=== PATIENT | female | born 1970 | race Caucasian/White ===

== ENCOUNTER 2018-12-29 01:09 | Outpatient (CLI) | payer BC, SELFPAY ==
[2018-12-29 09:19] LABS: ALT 17 U/L (12-78); AST 8 U/L (15-37); Albumin 3.8 g/dL (3.4-5.0); Alkaline Phosphatase 82 U/L (46-116); Anion Gap 13.3 mmol/L (3-11); BUN 13 mg/dL (7-18); Bilirubin, Total 0.5 mg/dL (0.2-1.0); CO2 21.7 mmol/L (21.0-32.0); CREATININE 0.72 mg/dL (0.55-1.02); Calcium 9.2 mg/dL (8.5-10.1); Calculated LDL 162 mg/dL; Chloride 106 mmol/L (98-107); Cholesterol 236 mg/dL (50-200); Glucose 91 mg/dL (70-100); HDL Cholesterol 45 mg/dL (40-60); Potassium 3.9 mmol/L (3.5-5.1); Sodium 141 mmol/L (136-145); Triglyceride 146 mg/dL (30-150)
== END 2018-12-29 01:29 ==
PROVIDERS: PCP Family Medicine
DX: F41.9 Anxiety disorder, unspecified (principal); R11.2 Nausea with vomiting, unspecified; Z00.00 Encounter for general adult medical examination without abnormal findings; Z13.220 Encounter for screening for lipoid disorders
CPT/HCPCS: 36415; 80053; 80061; 83721

== ENCOUNTER 2021-02-14 15:55 | Outpatient (REF) | payer BC, SELFPAY ==
--- NOTE | 2021-02-14 13:00 | PAPFT_PTH ---
PATIENT: Reyna Cat LOC: [facility] U#:[id number] AGE/SX: 50/F ROOM: RE02/14/[address]: CHON Oates : 1970 BED: DIS: 02/14/2021 SPEC #: [id number] RECD: 02/14/21 18:22 STATUS: FRANCOIS REQ #: [id number] TESS: 02/14/21 13:[address]: Natali Lara DEPT: [facility]LY [facility], [facility] Cytology RECD BY: Laina Rios ENTERED: 02/14/21 18:23 SP TYPE: PAPFT OT DR: Lela Del Rio MD Tissues: 1 - CX/ENDOCX FOR PAP SMEARS Procedures: PAP THIN PREP/UVM Screening HPV DNA PROBE Comments: [id number]
== END 2021-02-14 15:56 | disposition home or self-care (01) ==
LOC: LBN 15:55
PROVIDERS: PCP Family Medicine; Referring Provider Nurse Practitioner Family; Visit Provider Nurse Practitioner Family
DX: Z12.4 Encounter for screening for malignant neoplasm of cervix (principal); Z11.51 Encounter for screening for human papillomavirus (HPV)
CPT/HCPCS: 88142; 87624

== ENCOUNTER 2021-03-06 04:00 | Outpatient (CLI) | payer BC, SELFPAY ==
[2021-03-06 14:34] LABS: TSH (W/Ref FT4) 1.53 uIU/mL (0.36-3.74)
== END 2021-03-06 04:01 | disposition home or self-care (01) ==
LOC: LBO 04:00
PROVIDERS: PCP Family Medicine; Visit Provider Nurse Practitioner Family
DX: N92.0 Excessive and frequent menstruation with regular cycle (principal)
CPT/HCPCS: 36415; 84443

== ENCOUNTER 2021-03-07 13:54 | Outpatient (REF) | payer BC, SELFPAY ==
--- NOTE | 2021-03-07 13:15 | ENDOMET_PTH ---
PATIENT: Reyna Cat LOC: [facility] U#:[id number] AGE/SX: 51/F ROOM: RE03/07/[address]: Payton Olivo : 1970 BED: DIS: 03/07/2021 SPEC #: [id number] RECD: 03/07/21 17:33 STATUS: FRANCOIS REQ #: [id number] TESS: 03/07/21 13:[address]: Payton Olivo DEPT: Surgical Specimen RECD BY: Laina Rios ENTERED: 03/07/21 17:34 SP TYPE: Endomet OTHR DR: Jeramie Proctor Tissues: 1 - ENDOMETRIUM BX/CURRETTE Procedures: GROSS AND MICRO LEVEL 4 Comments: [id number]
== END 2021-03-07 13:55 | disposition home or self-care (01) ==
LOC: LBN 13:54
PROVIDERS: PCP Family Medicine; Visit Provider Obstetrics & Gynecology Gynecology
DX: N93.9 Abnormal uterine and vaginal bleeding, unspecified (principal)
CPT/HCPCS: 88305

== ENCOUNTER 2021-03-20 02:55 | Outpatient (CLI) | payer BC, SELFPAY ==
[2021-03-20 09:18] LABS: HCT 34.1 % (36.0-46.0); HGB 10.6 g/dL (11.2-15.7); MCH 26.7 pg (27.0-33.0); MCHC 31.1 % (32.0-36.0); MCV 85.9 fL (80-95); MPV 10.2 fL (8.0-11.0); Platelet Count 364 10^3/uL (130-400); RBC 3.97 10^6/uL (3.93-5.22); RDW 15.6 % (11.7-14.6); RDW-SD 48.9 fL; WBC 6.18 10^3/uL (4.4-10.8)
[2021-03-20 10:18] LABS: Chloride 106 mmol/L (98-107); HCG Qual (Serum) Negative; Potassium 4.4 mmol/L (3.5-5.1); Sodium 142 mmol/L (136-145)
[2021-03-20 11:33] LABS: Source Nasal/Nares
[2021-03-20 16:28] LABS: COVID-19 PCR Negative (Negative)
== END 2021-03-20 02:56 | disposition home or self-care (01) ==
LOC: LBO 02:55
PROVIDERS: PCP Family Medicine; Visit Provider Obstetrics & Gynecology Gynecology
DX: D25.9 Leiomyoma of uterus, unspecified (principal); N93.8 Other specified abnormal uterine and vaginal bleeding; Z20.822 Contact with and (suspected) exposure to COVID-19; Z01.818 Encounter for other preprocedural examination; Z01.812 Encounter for preprocedural laboratory examination
CPT/HCPCS: 36415; 80051; 85027; 87635; 84703

== ENCOUNTER 2021-03-22 10:29 | Inpatient (IN) | payer BC, SELFPAY ==
[2021-03-22] VITALS (21 sets, daily range): BP systolic 76–131; BP diastolic 27–74; PULSE 62–78; RESP 12–18; TEMP 36.1–37.3; O2SAT 95–100; BMI 29.0
[2021-03-22] MEDS: Lactated Ringers 1,000 ML 125 ML IV ×3 (06:31→14:17)
--- NOTE | 2021-03-22 06:58 | W.ANESPRE ---
General Info Date of Service Date Performed: 03/22/21 Height: 5 ft 9 in Weight: 89.2 kg Body Mass Index (BMI): 29.0 Surgical Procedure: Operation Date: 03/22/21 07:40 Proposed Procedures Side Surgeon p Hysterectomy Vaginal Laparoscopic Assist,sarath salpingectomy, bladder cysto Payton Olivo MD Meds Allergies and Home Medications Allergies Allergy/AdvReac Type Severity Reaction Status Date / Time codeine AdvReac Intermediate NAUSEA Verified 03/22/21 05:51 Home Medication Medication Instructions Recorded melatonin 5 mg PO HS 03/26/16 triamcinolone acetonide 0.1 % 1 applic TP BID #15 gm 08/20/19 topical ointment trazodone 50 mg tablet 25 - 50 mg PO QHS PRN #90 tab 10/11/19 omeprazole 20 mg capsule,delayed 20 mg PO DAILY #90 tab-cap 05/02/20 release sertraline 100 mg tablet 100 mg PO DAILY #90 tab-cap 08/27/20 Current Visit Medications: Current Medications Generic Name Dose Route Start Last Admin Trade Name Freq PRN Reason Stop Dose Admin Ringer's Solution 1,000 mls @ 125 mls/hr 03/22/21 06:00 03/22/21 06:31 IV 04/20/21 23:59 125 mls/hr INFUSION REYNALDO Administration Cefazolin Sodium/Dextrose 2 gm in 50 mls @ 100 mls/hr 03/22/21 06:00 Ancef Duplex IVPB 04/20/21 23:59 PREOP REYNALDO IV Miscellaneous Supplies 1 each 03/22/21 06:00 Iv Access IV 04/20/21 23:59 DIRECTED REYNALDO Sodium Chloride 0 ml 03/22/21 06:00 Normal Saline Flush 10 Ml Syr IV 04/20/21 23:59 PRN PRN Sodium Chloride 0 ml 03/22/21 06:00 Normal Saline 10 Ml Vial IJ 04/20/21 23:59 DIRECTED PRN Sterile Water 0 ml 03/22/21 06:00 Water,Injection,Sterile 10 Ml Vial IJ 04/20/21 23:59 DIRECTED PRN PFSH Active Problems Active Problems: Problem Status Onset Code Fibroid D21.9 Menorrhagia N92.0 Arm pain, left M79.602 Anxiety as acute reaction to gross stress F41.1, F43.0 Malignant neoplasm of female breast 05/02/01 C50.919 Migraine 04/29/13 G43.909 Medical History Medical History Anxiety as acute reaction to gross stress Arm pain, left Fibroid Surgical History Surgical History Breast, Lumpectomy (~2001) Right Breast Ca Dilation and curettage (~2005) Menorrhagia Tobacco Smoking/Tobacco Use Status: Never Alcohol Alcohol Intake: never Substance Use Substance use: Never Substance use type: does not use Vital Signs and Lab Results Vital Signs Most Recent Vital Signs in EMR: Most Recent Vital Signs Temp Pulse Resp BP Pulse Ox 36.4 C L 73 18 131/69 97 03/22/21 06:00 03/22/21 06:00 03/22/21 06:00 03/22/21 06:00 03/22/21 06:00 Lab Results Blood Type / Crossmatch: Patient ABO/Rh O Positive 03/22/21 06:15 03/22/21 Antibody Screen NEGATIVE 03/22/21 06:15 03/22/21 Complete Blood Count: White Blood Count 6.18 10^3/uL (4.4-10.8) 03/20/21 08:48 03/20/21 Red Blood Count 3.97 10^6/uL (3.93-5.22) 03/20/21 08:48 03/20/21 Hemoglobin 10.6 g/dL (11.2-15.7) L 03/20/21 08:48 03/20/21 Hematocrit 34.1 % (36.0-46.0) L 03/20/21 08:48 03/20/21 Platelet Count 364 10^3/uL (130-400) 03/20/21 08:48 03/20/21 Complete Metabolic Panel: Sodium Level 142 mmol/L (136-145) 03/20/21 08:48 03/20/21 Potassium Level 4.4 mmol/L (3.5-5.1) 03/20/21 08:48 03/20/21 Chloride Level 106 mmol/L (98-107) 03/20/21 08:48 03/20/21 Carbon Dioxide Level 25.0 mmol/L (21.0-32.0) 03/20/21 08:48 03/20/21 Liver Function Panel: No Data to Display Coagulation Panel: No Data to Display Cardiac Panel: No Data to Display Arterial Blood Gas: No Data to Display Venous Blood Gas: No Data to Display Pancreas Panel: No Data to Display Thyroid Panel: Thyroid Stimulating Hormone (TSH) 1.53 uIU/mL (0.36-3.74) 03/06/21 12:40 03/06/21 Infectious Disease: Coronavirus (COVID-19)(PCR) Negative (Negative) 03/20/21 09:05 03/20/21 Coronavirus 2019 Source Nasal/Nares 03/20/21 09:05 03/20/21 Blood Cultures: No Data to Display Toxicology Panel: No Data to Display Panel: Serum HCG, Qualitative Negative 03/20/21 08:48 03/20/21 Anesthesia Assessment and Plan Anesthesia History Personal History: No History of Anesthesia Complications Family History: No Family History of Anesthesia Complications Exercise Tolerance Exercise Tolerance: Metabolic Equivalents>4 Pertinent Negatives Pertinent Negatives: No Symptoms of GERD, No Major Cardiovascular Symptoms or Complaints, No Major Pulmonary Symptoms or Complaints and No History of CVA/TIA Cardiac & Pulmonary Exam Cardiac Exam: Normal S1/S2 Heart Sounds Pulmonary Exam: Clear Bilateral Breath Sounds Airway Exam Known Difficult Airway: No Mallampati Class: 3 Mouth Opening: Narrow (< 3cm) Thyromental Distance: Less than 3 cm Neck Range of Motion: Full ROM Neck Circumference: Normal Teeth Condition: Normal Dentition ASA Classification ASA Score: ASA 2 Emergency Case?: No NPO Status NPO Status: NPO Clears >2 hours, Solids >8 hours Status Status: Negative HCG Anesthesia Plan Resuscitation Status: Full Code Anesthesia Technique: General Anesthesia Airway Planned: Endotracheal Tube Pain Management: Intrathecal Analgesia Monitors Used: Standard Monitors
[2021-03-22] MEDS: ceFAZolin 2 GM/50 ML BAG IVPB (07:53)
[2021-03-22] MEDS: Bupivacaine 0.25% Pres-Free 30 ML VIAL (09:28)
--- NOTE | 2021-03-22 09:42 | UTER_PTH ---
PATIENT: Reyna Cat LOC: [facility] U#:[id number] AGE/SX: 51/F ROOM: OBS.306 RE03/22/[address]: Payton Olivo : 1970 BED: A DIS: 03/23/2021 SPEC #: [id number] RECD: 03/22/21 12:52 STATUS: FRANCOIS REQ #: [id number] TESS: 03/22/21 09:[address]: Payton Olivo DEPT: Surgical Specimen RECD BY: Laina Rios ENTERED: 03/22/21 12:53 SP TYPE: UTER OTHR DR: Jeramie Proctor Tissues: 1 - UTERUS W OR W/O OVARIES(NOT TUMOR/PROLAPSE) Procedures: IMMUNOPEROXIDASE STAIN GROSS AND MICRO LEVEL 5 Comments: [id number]
[2021-03-22] MEDS: Cellulose,Oxidized 2X3 PKT 1 EACH MC (10:57)
[2021-03-22] MEDS: Bupivacaine LIPOSOME/PF 133 MG/10 ML VIAL IJ (10:57)
[2021-03-22] MEDS: ePHEDrine 50 MG/ML VIAL IVP (11:22)
[2021-03-22] MEDS: fentaNYL 100 MCG/2 ML VIAL IVP ×5 (11:37→12:20)
--- NOTE | 2021-03-22 12:09 | ROE_ITS ---
Date of service: 03/22/21 Time of Service: 12:10 Operative Note Operative Note DATE OF PROCEDURE: 03/22/21 PRE-OP DIAGNOSIS: Fibroid uterus, abnormal uterine bleeding, anemia POST-OP DIAGNOSIS: same PROCEDURE: Attempted laparoscopic assisted vaginal hysterectomy converted to a transabdominal hysterectomy with bilateral salpingo-oophorectomy SURGEON: Payton Olivo ASSISTING SURGEON: Bindu Martinez ANESTHESIA TYPE: General LMA/ETT and Spinal Refer to Anesthesia Record ESTIMATED BLOOD LOSS: 550 PATHOLOGY: other (Uterus fallopian tubes and ovaries to pathology) COMPLICATIONS: None Patient was transported to: PACU Patient's condition: stable Indications: 51yo female history of abnormal uterine bleeding and enlarged fibroid uterus. Patient also has a history of ER/W[place] positive breast cancer. She was counseled to have a bilateral salpingo-oophorectomy at the time of hysterectomy Findings: Enlarged uterus approximately 16 cm in length and 9 cm wide with normal-appearing adnexa and prominent uterine arteries and veins filled by self pelvic sidewalls and anterior cul-de-sac in proximity to the cervix. Procedure Description: Patient was taken to the operating room where she received spinal anesthesia followed by general endotracheal anesthesia. She received 2 g of Ancef upon arrival in the OR. She was then placed in the dorsal lithotomy position in yellowfin stirrups with SCDs in place. After being prepped and draped in the usual sterile fashion a surgical timeout was performed. Guillen catheter was placed to gravity drainage. A bivalve speculum was placed in the vagina and the anterior lip of the cervix was grasped with a single-tooth tenaculum. A Zumi uterine manipulator was successfully inserted into the uterine cavity and the device left in place. Attention was then turned to the patient's abdomen. The umbilical fold was infiltrated with quarter percent Marcaine without epinephrine. A scalpel was then used to make a 12mm vertical skin incision in the umbilical fold. Two penetrating towel clips were used to tent up the skin and through the periumbilical incision and a Veres needle was introduced into the abdomen with carbon dioxide as the distention medium. Intra-abdominal placement was confirmed by a drop in the intra-abdominal pressure. Once a pneumoperitoneum was established a 12 mm Visiport was placed under direct visualization. Patient was then placed in Trendelenburg position. Two sites approximately 6 cm diagonally from the umbilical incision the skin were infiltrated with 1cc of 0.25% Marcaine without epinephrine, incised with a scalpel and two 5 mm lower ports were placed under direct visualization. The LigaSure electrocautery device was used to clamp, cauterize and transect the suspensory ligament of the right ovary followed by the right round ligament which was also clamped cauterized and transected. This allowed access to the right broad ligament which was clamped, cauterized and transected to the level of the lower right uterine segment. Uterine vessels were clamped and cauterized. A small portion of the the vesico-uterine peritoneum was incised and the the from the lower uterine segment and mobilized off of the body of the cervix. However significant bleeding from aberrant vessels of the uterine artery and vein was encountered. We were unable to assure hemostasis with the use of hemoclips and cautery with the LigaSure device. Decision was made to convert to a laparotomy for the remainder of the hysterectomy. Laparoscopic instruments were removed along with the ports and the pneumoperitoneum was reduced, and the was abdomen covered with sterile drape. Scalpel was used to incise a skin a Pfannenstiel skin incision and the underlying subcutaneous tissue was dissected with the scalpel to the level of rectus fascia. The rectus fascia was then nicked in the midline with the scalpel and the incision extended bluntly. The rectus muscles were bluntly in the midline and the peritoneum of the anterior abdominal wall was entered bluntly in the abdominal incision extended laterally with blunt technique. Uterus was lifted out of the pelvis and a straight Zeppelin clamp was applied to the uterine vessels in proximity to the right lower uterine segment. The pedicle was then cut and suture-ligated with 0 Vicryl. Once hemostasis was achieved a O'Aime-O'Aguila retractor was placed into the abdomen and the bowel packed away with moist laparotomy sponges. On the patient's right lower uterine segment the vesicle-uterine peritoneum was tented up and incised with Bovie electrocautery and dissected off of the lower uterine segment. A window was made in the broad ligament beneath the suspensory ligament of the ovary. The ligament of the ovary was then doubly clamped cut and suture-ligated with excellent hemostasis. The remaining broad ligament was clamped, cut, and transected in a caudal fashion to the level of the lower uterine segment. The uterine artery and vein were subsequently skeletonized clamped transected and suture-ligated. Able to dissected the vesicouterine peritoneum away from the lower uterine segment and able to place 2 right angle Zeppelin retractors across the pelvis portio of the cervix and amputate the cervix using curved Herndon scissors. The specimen was then passed off the field. The vaginal cuff was reapproximated with a series of urbtie-yx-[id number] sutures of 0 Vicryl with care taken to incorporate the uterosacral ligament and the vaginal cuff closure. Of open irrigated with normal saline and all pedicles were inspected and noted to be hemostatic. A 2 cm x 3 cm segment of Surgicel was placed across the vaginal cuff and all pedicles were inspected and noted to be hemostatic. The self- retaining retractor was removed all laparotomy sponges were retrieved from the abdomen and the anterior abdominal peritoneum was reapproximated with a running suture of 2-0 Vicryl. Rectus fascia was reapproximated with a running suture of 0 Vicryl extending from the lateral margins and overlapping in the midline. The subcutaneous tissue was injected with Exparel and then reapproximated with 3-0 Vicryl in a running fashion. The skin incision was closed with 4-0 Monocryl in a subcuticular fashion. Skin glue was applied to the incision. The rectus fascia of the periumbilical incision was closed with a 0 Vicryl interrupted suture. The skin of all trocar sites was reapproximated with a subcuticular suture of 4-0 Monocryl. Skin glue was also applied to the trochar incisions. Patient was placed in the dorsal supine position, awakened, and extubated. She was transported to recovery room in stable condition. All sponge lap needle counts were correct x2.
[2021-03-22] MEDS: HYDROmorphone 2 MG/ML VIAL IVP (12:55)
[2021-03-22] MEDS: Normal Saline 10 ML VIAL IJ (12:55)
[2021-03-22] MEDS: ACETAMINOPHEN 1,000 MG/100 ML BTL 400 MG IVPB (12:59)
--- NOTE | 2021-03-22 13:17 | W.ANESPOSTOP ---
Postoperative Evaluation Date, Time and Location Date Performed: 03/22/21 Time Performed: 13:17 Patient Location: PACU Vital Signs Most Recent Imported Vital Signs: Most Recent Vital Signs Temp Pulse Resp BP Pulse Ox 36.2 C L 77 14 117/51 L 96 03/22/21 13:03 03/22/21 13:03 03/22/21 13:03 03/22/21 13:03 03/22/21 13:03 Pain Score Most Recent Pain Score: Most Recent Pain Score Pain Level 9 03/22/21 13:03 Assessment Mental Status: Awake (Alert & Oriented to Patient Baseline) Airway and Respiratory Function: Patent airway with normal (patient baseline) respiratory exam Cardiovascular Function: Hemodynamically Stable Hydration Status: Adequately Hydrated Nausea & Vomiting: No Nausea or Vomiting Pain: Pain is Moderate or Severe Postoperative Pain Management: Pain being addressed with medication and Ongoing pain, patient will be managed as an inpatient Peripheral Nerve Block: Patient did not receive a nerve block
[2021-03-22] MEDS: Ketorolac 30 MG/ML VIAL IVP ×2 (14:27→20:01)
[2021-03-22] MEDS: Normal Saline Flush 10 ML SYR IV (14:31)
[2021-03-22] MEDS: Ondansetron 4 MG TAB PO ×2 (15:56→23:17)
[2021-03-22] MEDS: oxyCODONE 5 mg/Acetaminophen 325 mg TAB PO ×3 (15:56→23:17)
[2021-03-23] MEDS: Ketorolac 30 MG/ML VIAL IVP ×2 (02:11→08:11)
[2021-03-23 03:39] VITALS: BP 107/60; PULSE 77; RESP 18; TEMP 36.6
[2021-03-23] MEDS: oxyCODONE 5 mg/Acetaminophen 325 mg TAB PO ×2 (05:44→10:13)
[2021-03-23] MEDS: Ondansetron 4 MG/2 ML VIAL IVP (05:47)
[2021-03-23 07:50] LABS: HGB 8.6 g/dL (11.2-15.7); MCH 27.4 pg (27.0-33.0); MCHC 31.9 % (32.0-36.0); MPV 10.6 fL (8.0-11.0); Platelet Count 304 10^3/uL (130-400); RBC 3.14 10^6/uL (3.93-5.22); RDW 15.4 % (11.7-14.6); RDW-SD 48.8 fL; WBC 10.83 10^3/uL (4.4-10.8)
[2021-03-23 08:00] VITALS: BP 117/72; PULSE 59; RESP 14; TEMP 37; O2SAT 98
[2021-03-23] MEDS: Sertraline 50 MG TAB 100 MG PO (08:14)
--- NOTE | 2021-03-23 13:36 | W.PM.DS.N ---
Date of service: 03/23/21 Time of Service: 13:37 DS: Diagnosis Discharge Diagnosis (1) History of total abdominal hysterectomy and bilateral salpingo-oophorectomy: Status: Acute Discharge Plan Disposition Patient Disposition: HOME Condition: Improving Discharge Details Reason For Visit: Total Abdominal Hysterectomy Admit Date/Time: 03/22/21 10:29 Admit Provider: Payton Olivo Attending Provider: Payton Olivo Primary Care Provider: Jeramie Proctor Hospital Course Hospital Course: Pt is a 51yo female who was admitted the morning of surgery and underwent total abdominal hysterectomy with bilateral salpingoophorectomy for treatment of a symptomatic uterine fibroids. The procedure was started as a LAVH but converted to an open procedure when bleeding was encounter in the anterior cul-de-sac. She was discharged to home on POD 1. Voiding successfully and pain controlled with NSAIDs and PRN Percocet. She will f/u in the office in 2w for a wound check and review of pathology. No driving until her 2week postop appointment. Avoid constipation. Take MiraLax 1 teaspoon or powder in 8oz of beverage daily. Home Meds and New Rx's Prescriptions: No Action melatonin 5 MG tablet 5 mg PO HS RF: 0 triamcinolone acetonide 0.1 % ointment 1 applic TP BID Qty: 15 RF: 1 trazodone 50 mg tablet 25 - 50 mg PO QHS PRN (Reason: sleep) Qty: 90 RF: 4 omeprazole 20 mg capsule,delayed release(DR/EC) 20 mg PO DAILY Qty: 90 RF: 3 sertraline 100 mg tablet 100 mg PO DAILY Qty: 90 RF: 3 Discharge Instructions Additional Instructions: Take Percocet 1 tablet every 4hrs or 2 tablets every 6 hours for pain. Take the Percocet and the Advil together, they work in different ways. Do not take Tylenol while you are taking the Percocet, since Percocet has Tylenol in it. Take one or the other. Call the office and make an appointment with Dr. Olivo in [address] Olivo @ [phone] with any concerns or questions. Stand Alone Forms: DSU Post Gynecology Surgery Activity:: Activity as Tolerated Equipment/Supplies:: No Equipment Needed Diet:: As Tolerated Discharge Orders Discharge Orders: Discharge Order (Routine); Ordered 03/23/21 Ordered By: Payton Olivo DS: Summary Time Spent with Patient providing and/or coordinating discharge services: Less than 30 minutes Status at Discharge Functional status at discharge: independent ambulation Overall status at discharge: patient is progressing back to baseline Mental Status: mental status grossly normal Speech and Movement: speech and movement normal Mood: congruent mood Affect: normal affect Exam Narrative Exam Narrative: POD1 after attempted LAVH/BSO converted to STANLEY/BSO after bleeding encountered during the laparoscopy. Pt's pain was controlled by evening of surgery with NSAIDs and Percocet. Requesting discharge to home on POD 1. Const General: no acute distress Nutritional Appearance: overweight Orientation: alert, awake and oriented x3 Neck Neck: normal visual inspection Resp Effort & Inspection: normal respiratory effort Auscultation: clear to auscultation bilaterally Cardio Rate: regular rate Rhythm: regular rhythm GI Inspection: abdominal wall ecchymosis and incision (clean dry intact with skin glue in place.) Palpation: soft, no hepatosplenomegaly, no masses and tender Auscultation: normoactive bowel sounds Skin General skin exam: no rashes or lesions noted Extrem General: normal to inspection Psych Appearance: grossly normal Mental Status: mental status grossly normal Speech and Movement: speech and movement normal Mood: congruent mood Affect: normal affect DS: Data Vitals/I&O Vitals and I&O: Vital Signs Temperature 98.6 F 03/23/21 08:00 Temperature Source Oral 03/23/21 08:00 Pulse 59 L 03/23/21 08:00 Pulse Rhythm Regular 03/23/21 08:00 Respiratory Rate 14 03/23/21 08:00 Respiratory Effort 03/23/21 08:00 Respiratory Depth Normal 03/23/21 08:00 Respiratory Pattern Normal 03/23/21 08:00 Blood Pressure 117/72 03/23/21 08:00 Pulse Oximetry 98 03/23/21 08:00 Respiratory End-tidal CO2 38 03/22/21 13:15 Oxygen Delivery Method Room Air 03/23/21 08:00 Oxygen Flow Rate 0 03/23/21 08:00 Pain Level 10 03/23/21 10:13 Intake & Output 03/22/21 03/23/21 03/23/21 23:59 11:59 23:59 Intake Total 1150 / 2150 1945 / 1945 Output Total 1400 / 2000 1500 / 1500 Balance -250 / 150 445 / 445 Intake: IV 1150 / 2150 1225 / 1225 Oral 720 / 720 Output: Urine 1400 / 1450 1500 / 1500 Other: Urine Color Pale Yellow Urine Appearance Clear Clear Urine Odor None Emesis Description None Data Completed and Pending Labs on day of discharge: Labs from last 24 hours 03/23/21 07:00 WBC 10.83 H RBC 3.14 L Hgb 8.6 L Hct 27.0 L D MCV 86.0 MCH 27.4 MCHC 31.9 L RDW 15.4 H Plt Count 304 MPV 10.6 PFSH Medical History Anxiety as acute reaction to gross stress Arm pain, left Fibroid Surgical History (Updated 03/23/21 @ 13:37 by Payton Olivo MD) Breast, Lumpectomy (~2001) Right Breast Ca Dilation and curettage (~2005) Menorrhagia History of total abdominal hysterectomy and bilateral salpingo-oophorectomy Family History Father Bladder cancer Heart disease COPD (chronic obstructive pulmonary disease) Personal history of malignant neoplasm Stage III Lung Cancer Grandmother Personal history of malignant neoplasm COLON Social History (Updated 03/17/21 @ 08:22 by Payton Olivo MD) Smoking/Tobacco Use Status: Never Smoking risk assessment performed?: Yes Alcohol Intake: never Drug use: Never Substance use type: does not use 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
== END 2021-03-23 15:29 | disposition home or self-care (01) | DRG 743 ==
LOC: SUR 11:05 → OBS 14:30
PROVIDERS: Admitting Provider Obstetrics & Gynecology Gynecology; PCP Family Medicine; Visit Provider Obstetrics & Gynecology Gynecology
PROC: 0UT9FZZ Resection of Uterus, Via Natural or Artificial Opening With Percutaneous Endoscopic Assistance (ICD-10-PCS; CPT 58150; principal; 2021-03-22 07:30)
DX: N84.0 Polyp of corpus uteri (principal); D25.9 Leiomyoma of uterus, unspecified; N83.291 Other ovarian cyst, right side; Z85.3 Personal history of malignant neoplasm of breast; Z53.31 Laparoscopic surgical procedure converted to open procedure; N92.0 Excessive and frequent menstruation with regular cycle; G43.909 Migraine, unspecified, not intractable, without status migrainosus
CPT/HCPCS: 58150; 36415; 85027; 86850; 86900; 86901; 88307; 88361; J0131; J0690; J1100; J1885; J2001; J2250; J2405; J3010; J8597

== ENCOUNTER 2021-04-28 14:12 | Outpatient (REF) | payer BC, SELFPAY ==
[2021-04-30 12:38] LABS: COVID-19 RT-PCR UVMMC Result Negative (Negative)
== END 2021-04-28 14:13 | disposition home or self-care (01) ==
LOC: LBN 14:12
PROVIDERS: PCP Family Medicine; Visit Provider Nurse Practitioner Family
DX: Z20.822 Contact with and (suspected) exposure to COVID-19 (principal); J02.9 Acute pharyngitis, unspecified
CPT/HCPCS: U0003

== ENCOUNTER 2021-08-08 04:03 | Outpatient (CLI) | payer BC, SELFPAY ==
[2021-08-08 10:26] LABS: Abs Immature Grans 0.01 10^3/uL (0.0-0.06); Absolute Basophil Count 0.04 10^3/uL (0.0-0.2); Absolute Eosinophil Count 0.09 10^3/uL (0.0-0.7); Absolute Lymphocyte Count 1.72 10^3/uL (1.2-3.4); Absolute Neutrophil Count 3.95 10^3/uL (1.2-6.7); Basophils % 0.7; Eosinophils % 1.5; HCT 38.4 % (36.0-46.0); HGB 12.3 g/dL (11.2-15.7); Immature Grans % 0.2; Lymphocytes % 28.2; MCH 28.4 pg (27.0-33.0); MCV 88.7 fL (80-95); MPV 9.9 fL (8.0-11.0); Monocytes % 4.9; Neutrophils % 64.5; Nucleated RBC 0 %; Platelet Count 358 10^3/uL (130-400); RBC 4.33 10^6/uL (3.93-5.22); RDW 15.2 % (11.7-14.6); RDW-SD 49.7 fL; WBC 6.11 10^3/uL (4.4-10.8)
[2021-08-08 11:12] LABS: ALT 21 U/L (14-59); AST 12 U/L (15-37); Albumin 4.4 g/dL (3.4-5.0); Alkaline Phosphatase 96 U/L (46-116); Anion Gap 11.1 mmol/L (3-11); BUN 14 mg/dL (7-18); Bilirubin, Total 0.6 mg/dL (0.2-1.0); CO2 26.9 mmol/L (21.0-32.0); CREATININE 0.8 mg/dL (0.55-1.02); Calcium 9.9 mg/dL (8.5-10.1); Calculated LDL 186 mg/dL (<100); Chloride 102 mmol/L (98-107); Cholesterol 273 mg/dL (<200); Glucose 84 mg/dL (74-106); HDL Cholesterol 56 mg/dL (40-60); Sodium 140 mmol/L (136-145); Total Protein 7.8 g/dL (6.4-8.2); Triglyceride 156 mg/dL (<150)
[2021-08-09 10:18] LABS: Hepatitis C Ab w Rflx HCV PCR Negative (Negative)
[2021-08-09 10:57] LABS: HIV-1/2 Ag & Ab Screen Negative (Negative)
== END 2021-08-08 04:04 | disposition home or self-care (01) ==
LOC: LBO 04:03
PROVIDERS: PCP Family Medicine; Visit Provider Family Medicine
DX: E78.5 Hyperlipidemia, unspecified (principal); I10 Essential (primary) hypertension; Z11.59 Encounter for screening for other viral diseases; Z11.4 Encounter for screening for human immunodeficiency virus [HIV]
CPT/HCPCS: 36415; 80053; 80061; 86803; 87389; 85025

== ENCOUNTER 2022-04-16 16:35 | Outpatient (REF) | payer BC, SELFPAY | END 2022-04-16 16:36 | disposition home or self-care (01) | LOC: LBN 16:35 | PROVIDERS: PCP Nurse Practitioner Family; Visit Provider Nurse Practitioner Women's Health | DX: R30.0 Dysuria (principal) | CPT/HCPCS: 87086 ==

== ENCOUNTER 2022-08-17 01:24 | Outpatient (CLI) | payer BC, SELFPAY ==
[2022-08-17 12:36] LABS: HCT 39.7 % (36.0-46.0); MCH 30.2 pg (27.0-33.0); MCHC 32.7 % (32.0-36.0); MCV 92 fL (80-95); Platelet Count 313 10^3/uL (130-400); RBC 4.31 10^6/uL (3.93-5.22); RDW 13.1 % (11.7-14.6); RDW-SD 44.5 fL; WBC 4.93 10^3/uL (4.4-10.8)
[2022-08-17 13:19] LABS: Vitamin D 25 Total 33.3 ng/mL (30-100)
[2022-08-17 13:24] LABS: ALT 20 U/L (14-59); AST 14 U/L (15-37); Albumin 4.3 g/dL (3.4-5.0); Alkaline Phosphatase 90 U/L (46-116); Anion Gap 7.2 mmol/L (3-11); BUN 14 mg/dL (7-18); Bilirubin, Total 0.4 mg/dL (0.2-1.0); CO2 29.8 mmol/L (21.0-32.0); CREATININE 0.7 mg/dL (0.55-1.02); Calcium 9.6 mg/dL (8.5-10.1); Chloride 106 mmol/L (98-107); Glucose 82 mg/dL (74-106); Potassium 3.9 mmol/L (3.5-5.1); Sodium 143 mmol/L (136-145); TSH (W/Ref FT4) 1.02 uIU/mL (0.36-3.74); Total Protein 7.9 g/dL (6.4-8.2); Vitamin B12 494 pg/mL (193-986)
== END 2022-08-17 01:25 | disposition home or self-care (01) ==
LOC: LOS 01:24
PROVIDERS: PCP Nurse Practitioner Family; Visit Provider Nurse Practitioner Family
DX: R53.83 Other fatigue (principal); E78.5 Hyperlipidemia, unspecified; F41.8 Other specified anxiety disorders; R21 Rash and other nonspecific skin eruption; Z79.899 Other long term (current) drug therapy
CPT/HCPCS: 36415; 80053; 82306; 85027; 82607; 84443

== ENCOUNTER 2022-08-28 06:16 | Day surgery (SDC) | payer BC, SELFPAY ==
--- NOTE | 2022-08-27 19:30 | HPE_ITS ---
Date of service: 08/28/22 Time of Service: 07:00 Assessment and Plan Assessment and plan (1) Chronic constipation: Status: Acute Assessment and plan: Plan: Colonoscopy w/ general & natural airway. The?patient will be scheduled by my office. The pt understands that they need to do a bowel prep and the importance of hydration during this.? The patient understands there is a theoretical risk of renal failure.? For healthy patients we use Gatorade/Miralax Prep.? ?For anyone with renal concerns- GoLytely will be used. Plavix and coumadin will need to be held except in unusual circumstances. ? Patients in A. Fib do not need to be bridged with Lovenox or on CVA prophylaxis.? A baby ASA can be continued but full dose ASA needs to be stopped for 10 days prior to the procedure. A complete H & P is required within 30 days of the procedure.? GETA w/natural airway is used for the colonoscopy.? Informed consent is obtained for the procedural (explained in simple layman's terms that?the pt and/or family could understand) explaining risks vs benefits and alternatives to the procedure and consequences if we do not do the procedure and need/rational for the procedure. Risks include but are not limited to: bleeding, infection, perforation of colon.? This would necessitate emergency surgery to repair the damage w/ possible ostomy; and other associated complications w/ the required surgery. ? Also complications of anesthesia including aspiration, NM/CVA/, inability to complete the procedure. I discussed with the?patient would they could expect during the procedure, post procedure and recovery time and risks.? The patient understands that they need to have a ride home after the procedure.? The patient was given all this information in writing and expressed understanding. If there are any questions or concerns please feel free to contact our office.? Generally Colonoscopy does not require antibiotics prophylaxis, (2) Migraine: Status: Acute (3) Malignant neoplasm of female breast: Status: Acute (4) Fibroid: Status: Acute (5) Vasomotor symptoms due to menopause: Status: Acute (6) Hyperlipidemia: Status: Acute (7) Gastritis, bile acid reflux: Status: Acute (8) Colon cancer screening: Status: Acute (9) Sleep disorder: Status: Acute (10) Irritable bowel syndrome with constipation: Status: Acute History of Present Illness Narrative: PreOp 08/28/22 Patient is here today for colonoscopy for [].??? They completed a bowel prep with just a clear yellow residual effluent.? They not having any chest pain or shortness of breath, currently.? They are not experiencing any fever or chills.? They deny any productive cough or upper respiratory tract infection signs or symptoms.? They are not having abdominal pain, or nausea and vomiting.? They have not had any changes in medications, past medical history or past surgical history since previously being seen in the office. They have not had any accidents or have been in the ER since the clinic pre-operative evaluation. ??I reviewed the procedure with the patient today, including risks and benefits of the procedure, and what they could expect at home for recovery.? All questions are answered to the patient?s satisfaction today, and they are stable to proceed with the proposed procedure. clinic visit 06/15/20 t seen at the request of PCP regarding colon cancer screening. Pt has never had colon cancer screening before.? Pt has chronic constipation.? She usually takes dulcolax to move her bowels, and it is only once a week. ? Dad had similar issues. ? ? They deny any pain or difficulty with bowel movements, or rectal bleeding.? There is no family history of any colon cancer.? Pt did lose wt- but had a STANLEY and ulcer.? She was started on Protonix and Pepcid for this.? And this is taken care of the pain she was having.? Their appetite is better.? ?They deny heart, lung, or kidney problems. They are not having heartburn or indigestion. They have not had any prior colo-rectal surgery.? The patient? has not had a prior STANLEY.? They deny any problems with anesthesia in the past. Breast cancer-? 2001.? lumpectomy & sentinel node.? chemo & XRT. right.? ? tamoxifen for 5 yrs.? no numbness or swelling? in right arm. ? She is overdue for mamms-patient was encouraged to get her follow-up mammograms. She has tried Metamucil in the past but did not like it.? Today we discussed the importance of fiber therapy and water for healthy bowels.? Patient was given information on starting a fiber supplement and why this is important. allergy to Sugammadex.? Anesthesia: general (without airway) Previous surgical intolerances: No Previous surgical complications: No Pulmonary risk factors: Date of surgery: Planned procedure: Yes Sleep apnea risks: No COPD/Asthma/Smoker: Can climb one flight of stairs (12-13 steps) in less than 30 seconds without stopping and without symptoms: Yes The surgery proposed for this patient is: low risk Active cardiac conditions: none Active risk factors: none ASA (acetylsalicylic acid): not used Beta blockers: not used Kidneys: no concerns DM:no Review of Systems All systems reviewed & are unremarkable except as noted in HPI and below PFSH All Active Problems Irritable bowel syndrome with constipation (Acute) Migraine (Acute 04/29/13) Malignant neoplasm of female breast (Acute 05/02/01) 2001 (right)/ [facility] [place] Anxiety as acute reaction to gross stress (Acute) Fibroid (Acute) Vasomotor symptoms due to menopause (Acute) Hyperlipidemia (Acute) 08/2021- low risk AHA-1.8% Vaginal bleeding (Acute) 04/2022. 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 Otherwise normal vaginal cuff Gastritis, bile acid reflux (Acute) Chronic constipation (Acute) Colon cancer screening (Acute) COVID-19 (Acute ~06/15/22) Sleep disorder (Acute) Fatigue (Acute) Medical History Menorrhagia Neuropathic pain 03/29/2021. Right lateral margin Pfannenstiel skin incision. Trigger point injection with triamcinolone/bupivacaine Rash and nonspecific skin eruption Surgical History Breast, Lumpectomy (~2001) Right Breast Ca Dilation and curettage (~2005) Menorrhagia History of total abdominal hysterectomy and bilateral salpingo-oophorectomy Family History Father Bladder cancer Heart disease COPD (chronic obstructive pulmonary disease) Personal history of malignant neoplasm Stage III Lung Cancer Grandmother Personal history of malignant neoplasm COLON Other Vasomotor symptoms due to menopause Social History Smoking/Tobacco Use Status: Never Second Hand Exposure: Yes Smoking risk assessment performed?: Yes Alcohol Intake: never Drug use: Never Substance use type: does not use Caregiver/Support person: No Household members: spouse Housing: house Communication Needs: None Do you need help understanding health information?: Rarely 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 [employer] Pets and animals: Yes Pets and animals: cat(s) and dog(s) Sexually active: No Do you think of yourself as: straight/heterosexual Current gender identity: male What is your relationship status?: How often do you talk on the phone with friends or family?: three or more times per week How often do you get together with friends or relatives?: three or more times per week How often do you attend alevism or moravian services?: decline to answer Do you belong to any clubs or organized social groups?: no Panel score (0-1 are the most socially isolated patients): 2 What type of physical activity do you participate in: walking Duration: < 15 minutes/day Frequency: 5-6 times per week Xuan/Jain: No preference Special xuan needs: No Seatbelt use: always Helmet use: No Drive intox or ride w/intox 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 codeine AdvReac Intermediate NAUSEA Verified 08/28/22 06:41 Home Medications Medication Instructions Recorded Confirmed Type melatonin 5 mg tablet 5 mg PO HS 03/26/16 08/28/22 History trazodone 50 mg tablet 25 - 50 mg PO QHS PRN sleep #90 10/11/19 08/28/22 Rx tabs famotidine 40 mg tablet 40 mg PO QHS #90 tabs 05/08/22 08/28/22 Rx pantoprazole 40 mg tablet,delayed 40 mg PO DAILY #90 tabs 05/08/22 08/28/22 Rx release sucralfate 1 gram tablet (Carafate) 1 g PO QACHS #180 tabs 05/10/22 08/28/22 Rx permethrin 5 % topical cream 1 applic topical .Q 1 wk 2 doses 07/16/22 08/28/22 Rx #60 grams triamcinolone acetonide 0.5 % 1 applic topical BID PRN eczema 08/13/22 08/28/22 Rx topical cream #15 grams sertraline 100 mg tablet 100 mg PO DAILY #90 tab-caps 08/22/22 08/28/22 Rx Exam Narrative Exam Narrative: PHYSICAL EXAM GENERAL APPEARANCE: Alert, healthy appearance, oriented, x 3,? in no acute distress HEAD, EYES, EARS, NECK, THROAT: Head is normocephalic, pupils equal, round, reactive to light and accommodation, ocular movement intact, sclera clear and no jaundice. Patient had a mask on throughout the entirety of the visit. NECK: ? Trachea midline.? Neck supple.? No JVD LUNGS: normal respiration/normal chest excursion. ?Clear to auscultation bilaterally. ?No wheeze. ?HEART: Regular rate and rhythm. no murmurs ABDOMEN: soft and non-tender to palpation.? Normal bowel sounds.? Time Spent Time spent with Patient: 40-54 minutes Time was spent: preparing to see the patient(eg.review tests), obtaining and/or reviewing separately otained hiistory, ordering medications,tests, procedures, referring, communicating with other health healthcare business analyst, indepentently interpreting results, counseling the patient and care coordination
[2022-08-28 06:32] VITALS: BP 106/62; PULSE 100; RESP 16; TEMP 36.6; O2SAT 96
[2022-08-28] MEDS: Lactated Ringers 1,000 ML 80 ML IV (06:59)
--- NOTE | 2022-08-28 07:09 | W.ANESPRE ---
General Info Date of Service Date Performed: 08/28/22 Height: 5 ft 9 in Weight: 77.8 kg Body Mass Index (BMI): 25.3 Surgical Procedure: Operation Date: 08/28/22 07:35 Proposed Procedure Side Surgeon p Colonoscopy possible Polypectomy Dorothea Mcdonald DO Pre-Op Diagnosis Post-Op Diagnosis CHRONIC CONSTIPATION Meds Allergies and Home Medications Allergies Allergy/AdvReac Type Severity Reaction Status Date / Time sugammadex [From Bridion] Allergy Intermediate Hives to Verified 08/28/22 06:41 left arm, chest, and neck. codeine AdvReac Intermediate NAUSEA Verified 08/28/22 06:41 Home Medication Medication Instructions Recorded melatonin 5 mg tablet 5 mg PO HS 03/26/16 trazodone 50 mg tablet 25 - 50 mg PO QHS PRN sleep #90 10/11/19 tabs famotidine 40 mg tablet 40 mg PO QHS #90 tabs 05/08/22 pantoprazole 40 mg tablet,delayed 40 mg PO DAILY #90 tabs 05/08/22 release sucralfate 1 gram tablet (Carafate) 1 g PO QACHS #180 tabs 05/10/22 permethrin 5 % topical cream 1 applic topical .Q 1 wk 2 doses 07/16/22 #60 grams triamcinolone acetonide 0.5 % 1 applic topical BID PRN eczema 08/13/22 topical cream #15 grams sertraline 100 mg tablet 100 mg PO DAILY #90 tab-caps 08/22/22 Current Visit Medications: Current Medications Generic Name Dose Route Start Last Admin Trade Name Freq PRN Reason Stop Dose Admin Hyoscyamine Sulfate 0.125 mg 08/28/22 07:00 Hyoscyamine 0.125 Mg Sl/Oral/Chew SL DIRECTED PRN Ringer's Solution 1,000 mls @ 80 mls/hr 08/28/22 06:00 08/28/22 06:59 IV 09/26/22 23:59 80 mls/hr INFUSION REYNALDO Administration IV Miscellaneous Supplies 1 each 08/28/22 06:00 Iv Access IV 09/26/22 23:59 DIRECTED REYNALDO Ondansetron HCl 4 mg 08/28/22 07:00 Ondansetron 4 Mg/2 Ml Vial IVP Q4H PRN PRN Nausea / Vomiting Sodium Chloride 0 ml 08/28/22 06:00 Normal Saline Flush 10 Ml Syr IV 09/26/22 23:59 PRN PRN Sodium Chloride 0 ml 08/28/22 06:00 Normal Saline 10 Ml Vial IJ 09/26/22 23:59 DIRECTED PRN Sterile Water 0 ml 08/28/22 06:00 Water,Injection,Sterile 10 Ml Vial IJ 09/26/22 23:59 DIRECTED PRN PFSH Active Problems Active Problems: Problem Status Onset Code Irritable bowel syndrome with constipation K58.1 Migraine 04/29/13 G43.909 Malignant neoplasm of female breast 05/02/01 C50.919 Anxiety as acute reaction to gross stress F41.1, F43.0 Fibroid D21.9 Vasomotor symptoms due to menopause N95.1 Hyperlipidemia E78.5 Vaginal bleeding N93.9 Gastritis, bile acid reflux K29.60 Chronic constipation K59.09 Colon cancer screening Z12.11 COVID-19 ~06/15/22 U07.1 Sleep disorder G47.9 Fatigue R53.83 Medical History Medical History Menorrhagia Neuropathic pain 03/29/2021. Right lateral margin Pfannenstiel skin incision. Trigger point injection with triamcinolone/bupivacaine Rash and nonspecific skin eruption Medical History Comments:: 08/28/22 - Sugammadex reaction Surgical History Surgical History Breast, Lumpectomy (~2001) Right Breast Ca Dilation and curettage (~2005) Menorrhagia History of total abdominal hysterectomy and bilateral salpingo-oophorectomy Tobacco Smoking/Tobacco Use Status: Never Passive smoking exposure: Yes Second hand exposure: Yes Alcohol Alcohol Intake: never Substance Use Substance use: Never Substance use type: does not use Vital Signs and Lab Results Vital Signs Most Recent Vital Signs in EMR: Most Recent Vital Signs Temp Pulse Resp BP Pulse Ox 36.6 C 100 H 16 106/62 96 08/28/22 06:32 08/28/22 06:32 08/28/22 06:32 08/28/22 06:32 08/28/22 06:32 Lab Results Blood Type / Crossmatch: No Data to Display Complete Blood Count: White Blood Count 4.93 10^3/uL (4.4-10.8) 08/17/22 09:45 Red Blood Count 4.31 10^6/uL (3.93-5.22) 08/17/22 09:45 Hemoglobin 13.0 g/dL (11.2-15.7) 08/17/22 09:45 Hematocrit 39.7 % (36.0-46.0) 08/17/22 09:45 Platelet Count 313 10^3/uL (130-400) 08/17/22 09:45 Complete Metabolic Panel: Sodium 143 mmol/L (136-145) 08/17/22 09:45 Potassium 3.9 mmol/L (3.5-5.1) 08/17/22 09:45 Chloride 106 mmol/L (98-107) 08/17/22 09:45 Carbon Dioxide 29.8 mmol/L (21.0-32.0) 08/17/22 09:45 BUN 14 mg/dL (7-18) 08/17/22 09:45 Creatinine 0.7 mg/dL (0.55-1.02) 08/17/22 09:45 Est GFR (CKD-EPI 2020) 104.00 (mL/min/1.73m2) 08/17/22 09:45 Calcium 9.6 mg/dL (8.5-10.1) 08/17/22 09:45 Albumin 4.3 g/dL (3.4-5.0) 08/17/22 09:45 Glucose 82 mg/dL (74-106) 08/17/22 09:45 Liver Function Panel: Alanine Aminotransferase (ALT/SGPT) 20 U/L (14-59) 08/17/22 09:45 Aspartate Amino Transf (AST/SGOT) 14 U/L (15-37) L 08/17/22 09:45 Coagulation Panel: No Data to Display Cardiac Panel: No Data to Display Arterial Blood Gas: No Data to Display Venous Blood Gas: No Data to Display Pancreas Panel: No Data to Display Thyroid Panel: Thyroid Stimulating Hormone (TSH) 1.02 uIU/mL (0.36-3.74) 08/17/22 09:45 Infectious Disease: No Data to Display Blood Cultures: No Data to Display Toxicology Panel: No Data to Display Panel: No Data to Display Anesthesia Assessment and Plan Anesthesia History Personal History: Other Family History: No Family History of Anesthesia Complications Exercise Tolerance Exercise Tolerance: Metabolic Equivalents>4 Pertinent Negatives Pertinent Negatives: No Symptoms of GERD, No Major Cardiovascular Symptoms or Complaints, No Major Pulmonary Symptoms or Complaints and No History of CVA/TIA Cardiac & Pulmonary Exam Cardiac Exam: Normal S1/S2 Heart Sounds Pulmonary Exam: Clear Bilateral Breath Sounds Implantable Cardiac Device Does patient have a Pacemaker or an ICD?: No Airway Exam Known Difficult Airway: No Mallampati Class: 3 Mouth Opening: Narrow (< 3cm) Thyromental Distance: Less than 3 cm Neck Range of Motion: Full ROM Neck Circumference: Normal Teeth Condition: Normal Dentition ASA Classification ASA Score: ASA 2 Emergency Case?: No NPO Status NPO Status: NPO Clears >2 hours, Solids >8 hours Status Status: History of Hysterectomy Anesthesia Plan Resuscitation Status: Full Code Anesthesia Technique: General Anesthesia Airway Planned: Natural Airway Monitors Used: Standard Monitors
[2022-08-28 07:10] VITALS: BMI 25.3
[2022-08-28 08:13] VITALS: BP 119/75; PULSE 67; RESP 16; TEMP 37; O2SAT 100
--- NOTE | 2022-08-28 08:14 | PDOC.DSDIS_ITS ---
Date of service: 08/28/22 Time of Service: 08:15 Discharge Plan Disposition Patient Disposition: Home Discharge Details Reason For Visit: colon scope Attending Provider: Dorothea Mcdonald Primary Care Provider: Diogense Redd Home Meds and New Rx's Prescriptions: New Linzess 72 mcg capsule 72 mcg PO DAILY Qty: 30 3RF Continued permethrin 5 % cream 1 applic topical .Q 1 wk Qty: 60 1RF Rx Instructions: Apply to entire body, from scalp to soles of feet overnight (8-14hrs) then rinse off in the AM, may repeat in one week. triamcinolone acetonide 0.5 % cream 1 applic topical BID PRN (Reason: eczema) Qty: 15 0RF Rx Instructions: for no longer than 2 weeks pantoprazole 40 mg tablet,delayed release (DR/EC) 40 mg PO DAILY Qty: 90 0RF famotidine 40 mg tablet 40 mg PO QHS Qty: 90 0RF melatonin 5 MG tablet 5 mg PO HS trazodone 50 mg tablet 25 - 50 mg PO QHS PRN (Reason: sleep) Qty: 90 4RF sucralfate [Carafate] 1 gram tablet 1 g PO QACHS Qty: 180 0RF Rx Instructions: for 6 weeks sertraline 100 mg tablet 100 mg PO DAILY Qty: 90 3RF Discharge Instructions Additional Instructions: DSU Colonoscopy Post- Op Instructions Instructions for Everyone who is given Anesthesia: For your safety, please do the following for the next twenty-four (24) hours: *Do Not operate a motor vehicle (car, truck, motorcycle, etc.) *Do Not drink alcoholic beverages or use any recreational drugs for the first 24 hours or while taking pain medications. The medications in your body may have a reaction that can be dangerous. *Do Not make any important decisions or sign any important papers. Findings:minor hemorrhoids otherwise normal Rx Linzess. Wait I week to start this medication until bowels return to normal from prepping. Follow up: 10/08 10am call [phone] [facility] 1. No lifting over 20 pounds or strenuous activity for the first 24 hours after your procedure. After 24 hours there are no restrictions on your activity but you may feel fatigued for a few days. 2. After you arrive home you may have a light meal and return to your normal diet as you can tolerate it without feeling sick to your stomach. 3. You may have a bloated, gaseous feeling in your belly (abdomen) after a colo noscopy. Passing gas and belching will help. Walking or lying down on your left side with your knees flexed may relieve the discomfort. Call the office at [phone] (Office) or [phone] (Hospital) right away if you notice any of the following: a.Vomiting of blood or ?coffee ground stools?. b.Rectal bleeding 1Tbsp, blood clots or continuous bleeding. c.Severe belly (abdominal) pain. d.A hard distended belly (abdomen) and an inability to pass gas. 4. Please don?t expect to have a normal BM (bowel movement) for 2-3 days after your procedure. 5. If there are questions regarding the findings of your procedure, please contact your doctor 6. If you are unable to contact your doctor with a problem, contact the hospital at [phone]. 7. Continue all your regular medications unless directed otherwise. I understand the above instructions and have no questions. Signature of Patient or Adult Escort Name of Responsible Adult Escort Signature of Nurse Date/Time Stand Alone Forms: Endy Daniel (DSU) Activity:: see above Diet:: see above Discharge Orders Discharge Orders: Discharge Order (Routine); Ordered 08/28/22 Ordered By: Dorothea Mcdonald DS: Diagnosis Discharge Diagnosis (1) Chronic constipation: Status: Acute (2) Migraine: Status: Acute (3) Malignant neoplasm of female breast: Status: Acute (4) Fibroid: Status: Acute (5) Vasomotor symptoms due to menopause: Status: Acute (6) Hyperlipidemia: Status: Acute (7) Gastritis, bile acid reflux: Status: Acute (8) Colon cancer screening: Status: Acute (9) Sleep disorder: Status: Acute (10) Irritable bowel syndrome with constipation: Status: Acute (11) Internal and external hemorrhoids without complication: Status: Acute
--- NOTE | 2022-08-28 08:19 | W.PM.ENDDOP ---
Date of service: 08/28/22 Time of Service: 08:19 Endoscopy Report DATE OF PROCEDURE: 08/28/22 PRE-OP DIAGNOSIS: crc screening/chronic constipation POST-OP DIAGNOSIS: other (I&E hemorrhoids ) SURGEON: Dorothea Mcdonald ANESTHESIA TYPE: General:No Airway ESTIMATED BLOOD LOSS: 0 PATHOLOGY: none sent COMPLICATIONS: None DISPOSITION: same day PREP: Miralax/Dulcolax COLONOSCOPY RETRACTION TIME: 10 PROCEDURE DESCRIPTION: After informed consent was obtained the patient was taken to the procedure room and placed in a left decubitous position. Monitors were applied and a time out was done. The patients name, date of , procedure, allergies to medications and metal in their body was reviewed. The patient was then sedated. Once sedated and comfortable a rectal exam was done. External exaam: small external hemorrhoids. Internal exam revealed a normal sphincter tone and no palpable masses. The scope was then introduced and retrofelexed. grade I x1 column internal hemorrhoids were identified. The scope was then advanced to the cecum [] difficulty. The TI and appendiceal orifice were identified. The prep was BBPS 3 in all segments for a total of 9. The colon was somewhat tortuous and redundant. 10 the scope was then slowly retracted over 10 minutes back into the rectum. There are no polyps, AVMs, or diverticula visualized. The mucosa is pink and healthy. The scope was removed and the patient was woken up and taken back to Same day surgery in stable condition. The patient tolerated the procedure well and there were no immediate complications. Follow up: The patient should follow up in 10 years unless they develop changes in bowel habits or other new gastrointestinal complaints.
[2022-08-28 08:45] VITALS: BP 125/76; PULSE 71; RESP 18; TEMP 36.4; O2SAT 99
--- NOTE | 2022-08-28 09:07 | W.ANESPOSTOP ---
Postoperative Evaluation Date, Time and Location Date Performed: 08/28/22 Time Performed: 08:45 Patient Location: Day Surgery Unit Vital Signs Most Recent Imported Vital Signs: Most Recent Vital Signs Temp Pulse Resp BP Pulse Ox 36.4 C L 71 18 125/76 99 08/28/22 08:45 08/28/22 08:45 08/28/22 08:45 08/28/22 08:45 08/28/22 08:45 Pain Score Most Recent Pain Score: Most Recent Pain Score Pain Level 0 08/28/22 08:45 Assessment Mental Status: Awake (Alert & Oriented to Patient Baseline) Airway and Respiratory Function: Patent airway with normal (patient baseline) respiratory exam Cardiovascular Function: Hemodynamically Stable Hydration Status: Adequately Hydrated Nausea & Vomiting: No Nausea or Vomiting Pain: Pt. Denies Any Pain Peripheral Nerve Block: Patient did not receive a nerve block
== END 2022-08-28 09:44 | disposition home or self-care (01) ==
PROVIDERS: PCP Nurse Practitioner Family; Visit Provider Surgery
PROC: 0DJD8ZZ Inspection of Lower Intestinal Tract, Via Natural or Artificial Opening Endoscopic (ICD-10-PCS; CPT 45378; principal; 2022-08-28 07:30)
DX: Z12.11 Encounter for screening for malignant neoplasm of colon (principal); K59.09 Other constipation; K64.0 First degree hemorrhoids
CPT/HCPCS: 45378

== ENCOUNTER 2022-12-02 09:51 | Emergency (ER) | payer BC, SELFPAY ==
[2022-12-02 09:58] VITALS: BP 161/88; PULSE 102; RESP 24; TEMP 37.1; O2SAT 97
[2022-12-02] MEDS: LORazepam 1 MG TAB PO (10:22)
--- NOTE | 2022-12-02 12:10 | W.ED.GENAD ---
Discharge Plan Disposition Patient Disposition: Home Discharge Details Clinical Impression: Mood disorder Primary Care Provider: Diogenes Redd ED Provider: Laina lBue Home Meds and New Rx's Prescriptions: Continued triamcinolone acetonide 0.5 % cream 1 applic topical BID PRN (Reason: eczema) Qty: 15 0RF Rx Instructions: for no longer than 2 weeks bisacodyl [Dulcolax (bisacodyl)] 5 mg tablet,delayed release (DR/EC) 5 mg PO ONCE melatonin 5 MG tablet 5 mg PO HS trazodone 50 mg tablet 25 - 50 mg PO QHS PRN (Reason: sleep) Qty: 90 4RF pantoprazole 40 mg tablet,delayed release (DR/EC) 40 mg PO DAILY Qty: 90 1RF lactulose 10 gram packet 10 g PO DAILY Qty: 30 12RF Rx Instructions: can increase to twice a day sertraline 100 mg tablet 150 mg PO DAILY Discharge Instructions Additional Instructions: I am supplying you with 2 tablets of Ativan, these are to be used very sparingly Please do not combine them with any alcohol and use them only if you feel like you are having another panic attack I highly recommend establishing with a counselor to help you through this process Please return immediately should you have thoughts of wanting to harm yourself or should any new concerns arise Referrals: Diogenes Redd, [employer]PERATOR [Primary Care Provider] - Medical Decision Making Patient presents with reported severe anxiety and intermittent suicidality in the presence of 's chronic illness with recurrence Patient is alert and oriented on time of assessment, she is appearance of an acute anxiety attack clinically She has no chest pain or shortness of breath, vitals are stable aside from some mild elevation of blood pressure and mild tachycardia On reassessment, her pulse is 86 and blood pressure 140/70 Lungs are clear to auscultation, she is alert and oriented with an ambulatory gait She is no longer endorsing suicidality and feels much better after 1 mg of Ativan A safety plan was completed with RON Morris chest mental health screener who will follow up with her closely and supply counseling resources that she would likely need a counselor She feels safe with discharge home and is also comfortable plan Given very low threshold to return should she have new or worsening complaints HPI General Date/Time Provider Initiated Documentation: 12/02/22 10:11. HPI Narrative: This 52-year-old female presents with report of significant anxiety. Her has a health condition and had recurrence of symptoms on Saturday, this is triggered anxiety and a panic attack per patient. She takes sertraline at baseline, she has been taking this as prescribed. She states that she intermittently feels suicidal, but she does not have an active plan at this time. She denies any illicit drug use or alcohol consumption. She denies any chest pain or shortness of breath. Denies any attempts to harm self. Related Data Home Medications Medication Instructions Recorded Confirmed melatonin 5 mg tablet 5 mg PO HS 03/26/16 12/02/22 trazodone 50 mg tablet 25 - 50 mg PO QHS PRN sleep #90 10/11/19 12/02/22 tabs triamcinolone acetonide 0.5 % 1 applic topical BID PRN eczema 08/13/22 12/02/22 topical cream #15 grams pantoprazole 40 mg tablet,delayed 40 mg PO DAILY #90 tabs 08/29/22 12/02/22 release bisacodyl 5 mg tablet,delayed 5 mg PO ONCE 10/08/22 10/08/22 release (Dulcolax (bisacodyl)) lactulose 10 gram oral packet 10 g PO DAILY #30 ea 10/23/22 12/02/22 sertraline 100 mg tablet 150 mg PO DAILY 12/02/22 12/02/22 Previous Rx's Medication Instructions Recorded trazodone 50 mg tablet 25 - 50 mg PO QHS PRN sleep #90 10/11/19 tabs triamcinolone acetonide 0.5 % 1 applic topical BID PRN eczema 08/13/22 topical cream #15 grams pantoprazole 40 mg tablet,delayed 40 mg PO DAILY #90 tabs 08/29/22 release lactulose 10 gram oral packet 10 g PO DAILY #30 ea 10/23/22 Allergies Allergy/AdvReac Type Severity Reaction Status Date / Time sugammadex [From [facility]] Allergy Intermediate Hives to Verified 12/02/22 10:05 left arm, chest, and neck. codeine AdvReac Intermediate NAUSEA Verified 12/02/22 10:05 General Stated Complaint: PsychEval JOSE: 3 PFSH All Active Problems (Updated 12/02/22 @ 12:13 by JOSE Agrawal) Mood disorder (Acute) Internal and external hemorrhoids without complication (Acute) Irritable bowel syndrome with constipation (Acute) Migraine (Acute 04/29/13) Malignant [place] of female breast [place]Ac[place] 05/02/01) 2001 [place]right[place] [facility] [place]xiety as acute reaction to gross stress (Acute) Fibroid (Acute) Vasomotor symptoms due to menopause (Acute) Hyperlipidemia (Acute) 08/2021- low risk AHA-1.8% Vaginal bleeding (Acute) 04/2022. 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 Otherwise normal vaginal cuff Gastritis, bile acid reflux (Acute) Chronic constipation (Acute) Colon cancer screening (Acute) COVID-19 (Acute ~06/15/22) Sleep disorder (Acute) Fatigue (Acute) Medical History Menorrhagia Neuropathic pain 03/29/2021. Right lateral margin Pfannenstiel skin incision. Trigger point injection with triamcinolone/bupivacaine Rash and nonspecific skin eruption Surgical History Breast, Lumpectomy (~2001) Right Breast Ca Dilation and curettage (~2005) Menorrhagia History of total abdominal hysterectomy and bilateral salpingo-oophorectomy Family History Father Bladder cancer Heart disease COPD (chronic obstructive pulmonary disease) Personal history of malignant neoplasm Stage III Lung Cancer Grandmother Personal history of malignant neoplasm COLON Other Vasomotor symptoms due to menopause Social History Smoking/Tobacco Use Status: Never Second Hand Exposure: Yes Smoking risk assessment performed?: Yes Alcohol Intake: never Drug use: Never Substance use type: does not use Caregiver/Support person: No Household members: spouse Housing: house Communication Needs: None Do you need help understanding health information?: Rarely 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 [employer] Pets and animals: Yes Pets and animals: cat(s) and dog(s) Sexually active: No Do you think of yourself as: straight/heterosexual Current gender identity: male What is your relationship status?: How often do you talk on the phone with friends or family?: three or more times per week How often do you get together with friends or relatives?: three or more times per week How often do you attend religion or cheondoism services?: decline to answer Do you belong to any clubs or organized social groups?: no Panel score (0-1 are the most socially isolated patients): 2 What type of physical activity do you participate in: walking Duration: < 15 minutes/day Frequency: 5-6 times per week Xuan/Uatsdin: No preference Special xuan needs: No Seatbelt use: always Helmet use: No Drive intox or ride w/intox 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: No Do you feel safe at home: Yes Do you feel safe in your relationship?: Yes Female Reproductive History Menstrual Menopause type: surgical Course Vital Signs Vital signs: Vital Signs Temperature 37.1 C 12/02/22 09:58 Pulse 102 H 12/02/22 09:58 Respiratory Rate 24 12/02/22 09:58 Blood Pressure 161/88 H 12/02/22 09:58 Pulse Oximetry 97 12/02/22 09:58 Temperature 37.1 C 12/02/22 09:58 Pulse 102 H 12/02/22 09:58 Respiratory Rate 24 12/02/22 09:58 Respiratory Effort Normal, Non-Labored 12/02/22 10:04 Blood Pressure 161/88 H 12/02/22 09:58 Blood Pressure Position Sitting 12/02/22 09:58 Pulse Oximetry 97 12/02/22 09:58 Oxygen Delivery Method Room Air 12/02/22 09:58 Oxygen Flow Rate 0 12/02/22 09:58
--- NOTE | 2022-12-02 17:27 | PDOC.MHCN_ITS ---
Date of service: 12/02/22 Time of Service: 12:00 PHQ-9 Over the last 2 weeks, how often have you been bothered by any of the following problems? 1. Little interest or pleasure in doing things: several days 2. Feeling down, depressed, or hopeless: several days 3. Trouble falling or staying asleep, or sleeping too much: not at all 4. Feeling tired or having little energy: not at all 5. Poor appetite or overeating: not at all 6. Feeling bad about yourself - or that you are a failure or have let yourself and your family down: not at all 7. Trouble concentrating on things, such as reading the newspaper or watching television: several days 8. Moving or speaking so slowly that other people could have noticed? - Or the opposite - being so fidgety or restless that you have been moving around a lot more than usual: not at all 9. Thoughts that you would be better off or of hurting yourself in some way: not at all Total score: 3 If you checked off any problems, how difficult have these problems made it for you to do your work, take care of things at home, or get along with other people?: not difficult at all Source: Developed by Drs. Drew Maldonado, Eloisa Santamaria, Ryan Barriga and colleagues, with an educational mansi from [employer]. Suicide Severity Rate CSSRS Have you wished you were or wished you could go to sleep and not wake up?: No Have you actually had any thoughts of killing yourself?: No CSSRS2 Have you been thinking about how you might do this?: No Have you had these thoughts and had some intention of acting on them?: No Have you started to work out or worked out the details of how to kill yourself? Do you intend to carry out this plan?: No CSSRS3 Have you ever done anything, started to do anything or prepared to do anything to end your life?: No CSSRS4 Was this within the past three months?: No Screening Score Total Score: 0 Screening: Negative Mental Health Emergency Note Release [facility] release signed:: Yes Reason for Visit In the last 2 weeks has the pt presented for ES prior to today?: No Non Suicidal Self Injury Current: No History: No Safety Risk/Harm to Self or Others Current Ideation to Harm Self or Others: No Risk: Does risk to harm exist?: No Risk: Low Risk Duty to warn indicated: No Asssessment/Mental Status Appearance: Unremarkable Attitude: Cooperative Behavior: Unremarkable Speech: Normal Affect: Cogruent with mood Mood: Sad, Stressed and Depressed Thought process: Unremarkable Hallucinations: No Delusions: No Attention: Unremarkable Perception: Not impaired Orientation: Fully orientated Memory: Intact Insight: Good Judgement: Good Neurovegetative Symptoms Sleep: No change Appetitie: Decrease Interests: No change Energy: No change Libido: Not applicable Substance Use: Other Drug Issues: Other Do you use nicotine?: No Have you used substances in the last 7 days?: No Additional Issues: Assaultive/Threatening Behavior: No Medical Concerns: No Client engaged in active self harm w/weapon: No Threatening to run away: No Child reported abuse/neglect: No Voluntarily presenting for services: Yes Domestic violence is a concern: No Extreme Psychosis or extreme behavior is present: No Plan/Disposition Recommended Disposition: Therapy. Plan: The plan for this cleint is to be released from the hospital with a Safety plan in place. This client was able to confirm agreeance to a safety Plan developed by this clincian and client. She agreed to utilize this plan but also to reach out and call [phone] if she needed more supports. Reports/communication Outcome discussed with: ED/Personnel
== END 2022-12-02 13:03 | disposition home or self-care (01) ==
PROVIDERS: Emergency Provider Physician Assistant; PCP Nurse Practitioner Family
DX: F39 Unspecified mood [affective] disorder (principal); F41.9 Anxiety disorder, unspecified
CPT/HCPCS: 99283

== ENCOUNTER 2023-09-13 01:11 | Outpatient (CLI) | payer BC, SELFPAY ==
[2023-09-13 10:45] LABS: ALT 26 U/L (14-59); AST 16 U/L (15-37); Albumin 3.8 g/dL (3.4-5.0); Alkaline Phosphatase 90 U/L (46-116); Anion Gap 10.2 mmol/L (3-11); BUN 16 mg/dL (7-18); Bilirubin, Total 0.4 mg/dL (0.2-1.0); CO2 24.8 mmol/L (21.0-32.0); CREATININE 0.9 mg/dL (0.55-1.02); Calcium 9.1 mg/dL (8.5-10.1); Calculated LDL 180 mg/dL (<100); Chloride 108 mmol/L (98-107); Cholesterol 271 mg/dL (<200); Estimated GFR 76.44 (mL/min/1.73m2); Glucose 95 mg/dL (74-106); HDL Cholesterol 58 mg/dL (40-60); Sodium 143 mmol/L (136-145); TSH (W/Ref FT4) 2.19 uIU/mL (0.36-3.74); Total Protein 7.4 g/dL (6.4-8.2); Triglyceride 167 mg/dL (<150)
== END 2023-09-13 01:12 | disposition home or self-care (01) ==
PROVIDERS: PCP Nurse Practitioner Family; Visit Provider Nurse Practitioner Family
DX: Z00.00 Encounter for general adult medical examination without abnormal findings (principal)
CPT/HCPCS: 36415; 80053; 80061; 84443

== ENCOUNTER 2024-11-30 02:11 | Outpatient (CLI) | payer BC, SELFPAY ==
[2024-11-30 13:10] LABS: ALT 48 U/L (14-59); AST 24 U/L (15-37); Albumin 4.1 g/dL (3.4-5.0); Alkaline Phosphatase 104 U/L (46-116); Anion Gap 12.4 mmol/L (3-11); BUN 12 mg/dL (7-18); Bilirubin, Total 0.8 mg/dL (0.2-1.0); CO2 23.6 mmol/L (21.0-32.0); CREATININE 0.7 mg/dL (0.55-1.02); Calcium 9.5 mg/dL (8.5-10.1); Calculated LDL 187 mg/dL (<100); Chloride 106 mmol/L (98-107); Cholesterol 270 mg/dL (<200); Estimated GFR 102.71 (mL/min/1.73m2); Glucose 98 mg/dL (74-106); HDL Cholesterol 50 mg/dL (>or=50); Sodium 142 mmol/L (136-145); Total Protein 7.3 g/dL (6.4-8.2); Triglyceride 165 mg/dL (<150)
[2024-11-30 20:10] LABS: HBs Antibody, Quant 4.9 mIU/mL (See Note); Hep B Surface Ab Negative (See Note); Hepatitis B Core Antibody Negative (Negative); Hepatitis B Surface Antigen Negative (Negative)
== END 2024-11-30 02:12 | disposition home or self-care (01) ==
LOC: LOS 02:11
PROVIDERS: PCP Nurse Practitioner Family; Visit Provider Nurse Practitioner Family
DX: Z11.59 Encounter for screening for other viral diseases (principal); E78.5 Hyperlipidemia, unspecified
CPT/HCPCS: 36415; 80053; 80061; 86704; 86706; 87340